=== PATIENT | female | born 1985 | race Caucasian/White ===

== ENCOUNTER → 2016-09-19 | Outpatient (CLI) | payer OTHER ==
--- NOTE | 2016-09-19 11:04 | RAD ---
DATE: 09/19/2016 EXAM: DIGITAL DIAGNOSTIC BILATERAL, BREAST LEFT HISTORY: Bilateral yellowish/greenish nipple discharge left greater than right COMPARISON: None This study was interpreted with the benefit of Computerized Aided Detection (CAD). FINDINGS: Breast Density: SCATTERED The breast parenchyma shows scattered fibroglandular densities. Breast parenchyma level B. Best demonstrated on the cc views are nodular opacities centrally in the breasts. Several additional images were obtained a dominant mass is not seen and the nodular opacities on the conventional views likely reflect glandular elements. The nodular opacity in the left breast seen to persist more so than the right and targeted ultrasound was performed but no mass was seen on the targeted ultrasound. IMPRESSION: Probable benign findings. Follow-up bilateral mammography is suggested in 6 months to document stability of the nodular opacities seen on this initial screening exam Consider pituitary or systemic causes for bilateral nipple discharge. BI-RADS CATEGORY: 3 PROBABLE BENIGN FINDING(S-SHORT INTERVAL FOLLOW-UP SUGGESTED RECOMMENDED FOLLOW-UP: 6M 6 MONTH FOLLOW-UP PQRS compliance statement: Patient information was entered into a reminder system with a target due date 03/21/2017 for the next mammogram. Mammography is a sensitive method for finding small breast cancers, but it does not detect them all and is not a substitute for careful clinical examination. A negative mammogram does not negate a clinically suspicious finding and should not result in delay in biopsying a clinically suspicious abnormality. "Our facility is accredited by the [employer] Mammography Program."
== END | disposition home or self-care (01) ==
LOC: MAMMO 09:30
PROVIDERS: ATTEND Nurse Practitioner Family
DX: R92.8 Other abnormal and inconclusive findings on diagnostic imaging of breast (principal); N64.52 Nipple discharge
CPT/HCPCS: 76641; G0204; 77066

== ENCOUNTER → 2016-12-26 | Outpatient (CLI) | payer OTHER ==
--- NOTE | 2016-12-26 16:11 | KCIC ---
Three-view right wrist HISTORY: Anterior wrist pain for 4 days. Weakness and swelling. FINDINGS: No evidence of acute fracture. No bone destruction. Alignment and soft tissues appear within normal limits. IMPRESSION: No acute fracture or dislocation. Electronically signed by: Tom Bains MD (12/26/2016 4:08 PM) [place]
== END | disposition home or self-care (01) ==
LOC: KCIC 15:14
PROVIDERS: ATTEND Nurse Practitioner Family
DX: M25.531 Pain in right wrist (principal); R53.1 Weakness
CPT/HCPCS: 73110

== ENCOUNTER → 2017-09-20 | Outpatient (CLI) | payer OTHER | END | disposition home or self-care (01) | LOC: MAMMO 09:37 | DX: R92.8 Other abnormal and inconclusive findings on diagnostic imaging of breast (principal) | CPT/HCPCS: 77066; G0279 ==

== ENCOUNTER → 2017-12-05 | Outpatient (CLI) | payer OTHER ==
--- NOTE | 2017-12-05 17:27 | RAD ---
Pelvic and transvaginal ultrasound: History: MENORRHAGIA Comparison: None. Findings: Multiple transabdominal sonographic images of the pelvis are submitted. Uterus measured 13.3 x 5.1 x 6.3 cm. Left ovary measured 2.9 x 2.2 x 1.6 cm.. Right ovary is estimated at 4.4 x 4 x 2.4 cm. There is normal color flow and low resistance vascularity of the right ovary. Endometrium measured 1.6 cm. Transvaginal ultrasound: Multiple transvaginal sonographic images of the pelvis are submitted. There are multiple nabothian cysts. Endometrium measures 1.4 cm in thickness. Uterus measured 10.8 x 6.3 x 5.7 cm. There is a focus of echogenicity of the mid left uterus, possible calcification. There is anterior mass of the uterus in the myometrium estimated about 2.3 x 2.5 x 2.6 m. There is another uterine mass closer to the fundus about 1.6 cm in greatest dimension. Left ovary measured 3.8 x 1.6 x 3.1 cm with normal low resistance vascularity. Right ovary is not seen on this portion of exam. No significant free fluid is demonstrated. Impression: 1. Endometrial thickness can be considered within normal limits in a patient this age such as during the secretory phase. 2. There are uterine masses, the largest up to 2.6 cm most likely fibroids. There is a small echogenic focus of the uterus on the left, possible calcification. Electronically signed by: Wilfredo Fierro MD (12/05/2017 5:24 PM) [facility]
== END | disposition home or self-care (01) ==
LOC: US 15:38
PROVIDERS: ATTEND Nurse Practitioner Family
DX: N88.8 Other specified noninflammatory disorders of cervix uteri (principal)
CPT/HCPCS: 76830; 76856

== ENCOUNTER → 2018-02-05 | Outpatient (CLI) | payer OTHER ==
[~2018-02-05] MED LIST: ALPR1TAB2 PO; IBUP-1060 PO; TRAM50TA PO
[2018-02-05 14:32] LABS: BASO % 1 % (0-3); BILIRUBIN,URINE NEGATIVE (NEG); CLARITY,URINE CLEAR; COLOR,URINE YELLOW; EOS # 0.1 x10^3/uL (0.0-0.7); EOS % 1 % (0-3); HEMATOCRIT 42.3 % (36.0-47.0); HEMOGLOBIN 14.4 g/dL (12.0-15.5); LYMPH # 2.5 x10^3/uL (1.0-4.8); LYMPH % 25 % (24-48); MEAN CORPUSCULAR HEMOGLOBIN 30 pg (25-35); MEAN CORPUSCULAR HGB CONC 34 g/dL (31-37); MEAN CORPUSCULAR VOLUME 87 fL (79-100); MONO # 0.5 x10^3/uL (0.0-1.1); MONO % 5 % (0-9); NEUT % 69 % (31-73); NITRITE,URINE NEGATIVE (NEG); PH,URINE 5.5; PLATELET COUNT 286 x10^3/uL (140-400); PROTEIN,URINE NEGATIVE (NEG-TRACE); RED BLOOD COUNT 4.85 x10^6/uL (3.50-5.40); RED CELL DISTRIBUTION WIDTH 13.9 % (11.5-14.5); UROBILINOGEN,URINE 0.2 mg/dL (0.2 mg/dL); WHITE BLOOD COUNT 10.2 x10^3/uL (4.0-11.0)
[2018-02-05 14:42] LABS: SQUAMOUS EPITHELIAL CELL,UR MOD /LPF
[2018-02-05 14:43] LABS: BACTERIA,URINE FEW /HPF (0-FEW); RBC,URINE 0 /HPF (0-2)
[2018-02-05 15:03] LABS: ALBUMIN 3.5 g/dL (3.4-5.0); ALBUMIN/GLOBULIN RATIO 0.9 (1.0-1.7); CALCIUM 8.7 mg/dL (8.5-10.1); CREATININE 0.8 mg/dL (0.6-1.0); GFR 82.6; POTASSIUM 3.6 mmol/L (3.5-5.1); TOTAL BILIRUBIN 0.2 mg/dL (0.2-1.0); TOTAL PROTEIN 7.3 g/dL (6.4-8.2)
== END | disposition home or self-care (01) ==
LOC: SURGPAT 13:52
PROVIDERS: ATTEND Obstetrics & Gynecology
DX: Z01.818 Encounter for other preprocedural examination (principal); Z88.0 Allergy status to penicillin
CPT/HCPCS: 36415; 80053; 81001; 85025

== ENCOUNTER 2018-02-12 09:05 | Observation (INO) | payer OTHER ==
[2018-02-12] VITALS (8 sets, daily range): BP systolic 87–112; BP diastolic 52–78
[~2018-02-12] VITALS: Ht 162.6 cm; Wt 88.0 kg
[~2018-02-12 09:05] MED LIST changes: +BUPIVAC MPF-EPI 0.5%-1:200000 30 ML VIAL. ONE; +CLINDAMYCIN 900MG PREMIX 50 ML IV PRN; +DEXAMETHASONE SOD PHOS 20 MG/5 ML VIAL. ONE; +ESTROGENS, CONJ VAGINAL CREAM 30GM TUBE. ONE; +GLYCOPYRROLATE 1 MG/5 ML VIAL. ONE; +HYDROmorphone 2 MG/ML VIAL IV PRN; +INDIGOTINDISULFONATE SODIUM 40 MG/5 ML AMPUL. IV ONE; +IV RINGERS,LACTATED 1000ML 1,000 ML IV SCH; +KETOROLAC 30 MG/ML INJ FOR OR. INJ ONE; +LIDOCAINE 1% PF 2 ML VIAL. ID PRN; +MIDAZOLAM HCL/PF 2 MG/2 ML VIAL. ONE; +MORPHINE SULFATE 2 MG/ML VIAL. IV PRN; +NEOSTIGMINE METHYLSULFATE 5 MG/5 ML SYRINGE. ONE; +ONDANSETRON PF 4 MG/2 ML VIAL. IV PRN; +ONDANSETRON PF 4 MG/2 ML VIAL. ONE; +PROCHLORPERAZINE 10 MG/2 ML VIAL. IV PRN; +PROPOFOL 20 ML IV ONE; +ROCURONIUM 50 MG/5 ML VIAL. ONE; +SEVOFLURANE > 120 MINUTES. IH ONE; +fentaNYL PF VIAL 100 MCG/2 ML VIAL IV PRN; +fentaNYL PF VIAL 100 MCG/2 ML VIAL ONE
[2018-02-12 10:20] LABS: U PREG PATIENT NEGATIVE (NEG)
[2018-02-12] MEDS ORDERED: fentaNYL PF VIAL 100 MCG/2 ML VIAL ONE ×2 (10:43→12:33)
[2018-02-12] MEDS ORDERED: LACTULOSE 20 GM/30 ML SOLUTION. PO PRN (12:00)
[2018-02-12] MEDS ORDERED: oxyCODONE/APAP 5/325 1 TAB TABLET PO PRN (12:00)
[2018-02-12] MEDS ORDERED: 0.9 % SODIUM CHLORIDE 10 ML DISP.SYRIN. IV PRN (12:00)
[2018-02-12] MEDS ORDERED: diphenhydrAMINE 50 MG/ML VIAL IV PRN (12:00)
[2018-02-12] MEDS ORDERED: MAG HYDROX/ALUMINUM HYD/SIMETH 30 ML ORAL.SUSP PO PRN (12:00)
[2018-02-12] MEDS ORDERED: SIMETHICONE 80 MG TAB.CHEW PO PRN (12:00)
[2018-02-12] MEDS ORDERED: MAGNESIUM HYDROXIDE 2,400 MG/30 ML ORAL.SUSP. PO PRN (12:00)
[2018-02-12] MEDS ORDERED: diphenhydrAMINE HCL 25 MG CAPSULE PO PRN (12:00)
[2018-02-12] MEDS ORDERED: ONDANSETRON PF 4 MG/2 ML VIAL. IV PRN (12:00)
[2018-02-12] MEDS ORDERED: ZOLPIDEM 5 MG TABLET. PO PRN (12:00)
[2018-02-12] MEDS ORDERED: NALOXONE 0.4 MG/ML VIAL. IV PRN (12:00)
[2018-02-12] MEDS ORDERED: HYDROcodone/APAP 5/325MG 1 TAB TABLET PO PRN (12:00)
[2018-02-12] MEDS ORDERED: MORPHINE SULFATE 2 MG/ML VIAL. IV PRN (12:00)
[2018-02-12] MEDS ORDERED: KETOROLAC 30 MG/ML VIAL. IV PRN (12:00)
[2018-02-12] MEDS ORDERED: CALCIUM CARBONATE 500 MG TAB.CHEW PO PRN (12:00)
--- NOTE | 2018-02-12 12:09 | PDOC ---
BRIEF OPERATIVE NOTE Date: Feb 12, 2018 Pre-Op Diagnosis dysmenorrhea, menorrhagia, uterine fibroids Post-Op Diagnosis same plus mild adhesions Procedure Performed LAVH/BSO/adhesiolysis Surgeon Dr. Azul Ortega Finishing Range Operator Melissa Padilla, Test Eng Anesthesiologist Dr. Stephens Anesthesia Type: General Blood Loss 50cc IV Fluid 1500cc Urine Output 80cc clear and concentrated via velasquez Specimens Obtained cervix, uterus, bilateral tubes and ovaries Findings enlarged fibroid uterus, mildly enlarged PCOS ovaries, some bowel adhesions Complications none Operative Note [id number] AZUL ORTEGA MD Feb 12, 2018 12:09
[2018-02-12] MEDS ORDERED: PROCHLORPERAZINE 10 MG/2 ML VIAL. ONE (12:33)
--- NOTE | 2018-02-12 12:34 | OP ---
DATE OF SURGERY: 02/12/2018 PREOPERATIVE DIAGNOSES: Dysmenorrhea, menorrhagia, uterine fibroids, and polycystic ovarian syndrome. POSTOPERATIVE DIAGNOSES: Dysmenorrhea, menorrhagia, uterine fibroids, polycystic ovarian syndrome and mild adhesive disease. PROCEDURE PERFORMED: Laparoscopic-assisted vaginal hysterectomy, bilateral salpingo-oophorectomy, and adhesiolysis. SURGEON: Luis Ortega MD MEASURER: first felix Fitzgerald. ANESTHESIOLOGIST: Dr. Matt Lyles. ANESTHESIA: General endotracheal. ESTIMATED BLOOD LOSS: 50 mL. URINE OUTPUT: 80 mL, clear and concentrated via Parsons catheter. INTRAVENOUS FLUIDS: 1500 mL of crystalloid. FINDINGS: An enlarged fibroid uterus, mildly enlarged PCOS ovaries, some mild bowel adhesions. COMPLICATIONS: None. SPECIMENS: Cervix, uterus, bilateral tubes and ovaries. DESCRIPTION OF PROCEDURE: This patient was taken to the operating room where general anesthesia was placed. The patient was placed in dorsal lithotomy position in [facility]. The patient's abdomen and vagina were prepped and draped in the normal sterile fashion and a Parsons catheter had been inserted under sterile technique. At this point, a timeout was performed. Once everyone agreed, a bivalve speculum was placed in the patient's vagina. A single-tooth tenaculum was used to grasp the anterior lip of the cervix. A 10 mL of 0.25% Marcaine with epinephrine was used to circumferentially inject around the cervix for both hemodissection and hemostatic purposes later. The Valtchev uterine manipulator was placed through the endocervical os, locked on the single tooth tenaculum and the bivalve speculum was then removed. Top gloves were discarded and changed. Attention was then turned to the abdomen, where a supraumbilical skin incision was made with the scalpel. A curved Kiana was used to dissect through the subcuticular layer to the fascia. The 5 mm Visiport was used to directly enter the abdominal cavity. Opening patient pressure was 4 mmHg. Carbon dioxide gas was used to then appropriately insufflate the abdominal cavity to maintain a pressure of 15 mmHg. The patient was placed in Trendelenburg position. Right and left lower quadrant ports were placed under direct visualization after transilluminating the abdominal wall, finding an area clear of any vasculature, making sure there were no adhesions on the other side and placing 5 mm disposable atraumatic trocars under direct visualization without difficulty. A 2 mL of air was placed in the cuffs on these. I then did move the camera to a lateral port, looked at the umbilical port, it was clear and insufflated the cuff on it as well with 2 mL of air. The camera was placed back in the midline. The LigaSure Advance and the [place] were put down the accessory ports and the left tube and ovary were elevated finding the ureter coursing low, crossing high on the IP ligament under the ovary well above the ureter, cauterizing and cutting as the patient wished everything out. Good going down across the rounds. This was done exactly the same on the right side, elevating the right tube and ovary, finding the ureter, it was a little high on the right side, but still well below where we needed it to be and we could see it clearly staying high on the IP ligament, right under the ovary crossing it, going through the ligament and then crossing around as well, staying hugging the uterus, getting the uterine vessels on the right side, getting the bladder flap started and going across sharply where I could see and then going back and making sure we were inside the uterines and going down through the cardinal and broad ligaments on the right side. This was done exactly the same on the left, meeting that bladder flap anteriorly, making sure it was down, getting the uterines and going down through the cardinal and broad ligaments to the level of the uterosacral. The uterus was completely free and blanched. So at this point, all instruments were removed from the abdomen and attention was turned vaginally. The single tooth and Valtchev were removed. A weighted speculum was placed in the patient's vagina. Thyroid Rita clamps were placed on the anterior and posterior lips of the cervix respectively. A scalpel was used to make a circumferential incision in the cervix. An open Ray-Poonam 4 x 4 was used to gently push up the anterior bladder peritoneum and the anterior cul-de-sac was digitally and bluntly entered. The curved Luda was placed inside here and the 4 x 4 was passed back off and taken out of the patient and passed back off to the table. At this point, the cervix was elevated and the posterior cul-de-sac was sharply entered with Mcintosh scissors. A #0 Vicryl stitch was used to secure the posterior peritoneum to the vaginal cuff here and tagged with a curved Kiana clamp and the needle was cut and passed off. The short weighted speculum was removed and replaced with the long weighted Kevin speculum in the posterior cul-de-sac. Curved Patricia clamps x 2 were placed on the patient's left uterosacral ligament. They were doubly clamped with curved Heaneys, cut with Mcintosh scissors, suture ligated x 2 and the second one was taken through the vaginal cuff securing uterosacral ligament to the vaginal cuff and tagging it with a straight Kiana clamp and passing the needle off. This was done exactly the same on the right side, double clamping the uterosacrals with curved Patricia's, cutting with Mcintosh scissors, suture ligating x 2 with 0 Vicryl and taking the second one through the vaginal cuff, tagging it with a straight Kiana clamp and cutting and passing the needle off. The remaining pedicles on both sides were delineated with a right angle clamp and the vaginal LigaSure was used to cauterize the remaining pedicles. The cervix, uterus, bilateral tubes and ovaries were delivered in total and passed off for permanent pathology. The anterior bladder peritoneum was grasped with a long Allis. A sponge stick was used to examine the pedicles. Once the pedicles appeared hemostatic, the long weighted speculum was removed and replaced with a short weighted vaginal speculum. A 2-0 Vicryl was taken through the anterior bladder peritoneum, left uterosacral ligament, posterior peritoneum and right uterosacral ligament, thus closing the peritoneum in a pursestring like fashion. The right and left uterosacral tags were clipped at this point. A full length 2-0 Vicryl was used to close the vaginal cuff in an anterior to posterior running locked fashion and tied to the posterior cuff tag and tied and cut. Once this was done and the cuff was hemostatic, all instruments were removed. All gloves were discarded and changed, and initial counts were correct. Attention was then turned back above where gas was reinsufflated. Copious irrigation revealed hemostasis. Tisseel was placed over the vaginal cuff and the pedicles with excellent results. The right and left lower quadrant ports, the little cuffs were deflated with 2 mL of air and they were taken out under direct visualization. They were hemostatic. Gas was released from the umbilical port. All three port sites were closed with 4-0 nylon at the skin and injected with local. The patient is currently being awakened from anesthesia. LUIS ORTEGA MD DR: JUAN/harper JOB#: [id number] / [id number]
[2018-02-12] MEDS: fentaNYL PF VIAL 100 MCG/2 ML VIAL IV PRN ×2 (12:45→12:58)
[2018-02-12] MEDS ORDERED: ESTRADIOL WEEKLY 0.1 MG PATCH. TD ONE (14:00)
[2018-02-12] MEDS ORDERED: ALPRAZolam 1 MG TABLET PO SCH (21:00)
--- NOTE | 2018-02-17 11:08 | PATHOLOGY ---
[facility] Accession Number: [id number] . 01 Material submitted: . CERVIX, UTERUS, BILATERAL TUBES/OVARIES . 01 Clinical history: . Polycystic ovary syndrome . 02 Diagnosis: Uterus and attached bilateral fallopian tubes and ovaries, total hysterectomy with bilateral salpingo-oophorectomy: - Leiomyomas, uterine corpus, subserosal and intramural, multiple, the largest measuring 3.5 cm in greatest dimension (uterine weight 172 grams). - Chronic cervicitis with focal squamous metaplasia. - Nabothian cysts, cervix, few. - Proliferative endometrium. - Adenomyosis, uterine corpus, sub-basal, focal. - Congestion of bilateral fallopian tubes. - Small paratubal cysts, bilateral. - Cystic follicles of bilateral ovaries, multiple. LBQ/02/14/2018 . 02 Comment: There is no atypia or evidence of malignancy. (JPM/db; 02/14/2018) . 02 Electronically signed: . Power Jimenez MD, Pathologist NPI- [id number] . 01 Gross description: . The specimen is received in formalin, labeled "Dougherty, Ashlie, cervix, uterus, bilateral tubes/ovaries" and consists of a 172 g uterus with attached cervix measuring 11.4 x 6.5 x 6.1 cm. There is attached bilateral tubal ovarian complexes consisting of right fallopian tube (5.7 cm in length and 0.5 cm in diameter) attached to a 15 g right ovary (5.3 x 2.7 x 1.5 cm). The left fallopian tube measures 5.2 cm in length and 0.6 cm in diameter and is attached to a 12 g ovary (4.4 x 2.0 x 1.7 cm). The uterine serosa is padilla-brown, smooth, and nodular. The 2.0 cm slitlike cervical os is surrounded by glistening pink-padilla ectocervical mucosa. The specimen is bivalved to reveal a padilla-pink grooved endocervical canal measuring 3.8 cm. The endometrial cavity is triangular measuring 6.0 cm in length and 2.5 cm in width which is lined by a hemorrhagic endometrium measuring 0.1 cm. Further serial sectioning reveals a pink-padilla myometrium measuring up to 3.8 cm containing multiple subserosal and intramural nodules ranging from 0.5 cm to 3.5 cm. One nodule has padilla and hemorrhagic cut surfaces while the rest of the nodules have a white-whorled, homogeneous cut surfaces without hemorrhage necrosis or calcifications. No additional masses or lesions are identified. . Both fimbriated fallopian tubes are purple and smooth with paratubal cysts ranging from 0.1-0.3 cm. Both ovaries are padilla-brown and multinodular. Sectioning each fallopian tube reveals a central lumen and no gross lesions. Sectioning each ovary reveals multiple uniloculated cysts containing brown fluid ranging from 0.1-1.0 cm. Multiple corpora albicantia and lutea are present. Stage Set Designer sections are submitted as follows: . A1: Anterior cervix A2: Posterior cervix A3: Anterior endomyometrium A4: Posterior endomyometrium A5: Nodules A6: Nodule with hemorrhage A7: Right fallopian tube A8-A9: Right ovary A10: Left fallopian tube A11-A12: Left ovary (SDY; 02/13/2018) SYU/SYU . 02 Pathologist provided ICD-10: D25.1, N72, N80.0, N83.8 . 02 CPT . 694502 Specimen Comment: A courtesy copy of this report has been sent to Specimen Comment: [phone], . Specimen Comment: Report sent to / DR ISAAC Specimen Comment: A duplicate report has been generated due to demographic updates. Performed at: 01 [facility] [address], [place] [id number] MD Jeffrey Mobley MD Phone: [phone] Performed at: 02 [facility] [address] [place], [place] [id number] MD Power Jimenez MD Phone: [phone]
== END 2018-02-12 18:20 | disposition home or self-care (01) ==
LOC: SURG 09:05 → 3 NORTH 12:31
PROVIDERS: ADMIT Obstetrics & Gynecology; ATTEND Obstetrics & Gynecology
DX: D25.1 Intramural leiomyoma of uterus (principal); D25.2 Subserosal leiomyoma of uterus; E28.2 Polycystic ovarian syndrome; K66.0 Peritoneal adhesions (postprocedural) (postinfection); N92.0 Excessive and frequent menstruation with regular cycle; N94.6 Dysmenorrhea, unspecified; N32.89 Other specified disorders of bladder; N88.8 Other specified noninflammatory disorders of cervix uteri; N80.0 Endometriosis of uterus; N83.8 Other noninflammatory disorders of ovary, fallopian tube and broad ligament
CPT/HCPCS: 36415; 58552; 81025; 85018; 86850; 86900; 86901; 88307; A7015; G0378; G0379; J0780; J1100; J1885; J1956; J2250; J2405; J2704; J2710; J3010; J3490; J7030; J7120